=== PATIENT | female | born 2000 | race Caucasian/White ===

== ENCOUNTER 2025-02-14 11:15 | Emergency (ER) | payer OTHER, SELFPAY ==
[2025-02-14 11:18] VITALS: BP 162/102; PULSE 90; RESP 14; TEMP 36.1; O2SAT 98; BMI 35.5
--- NOTE | 2025-02-14 11:31 | DI.RAD.S_ITS ---
PROCEDURE: XR CHEST 1V INDICATIONS: Chest Pain TECHNIQUE: One view of the chest was acquired. COMPARISON: None. FINDINGS: Surgical changes and devices: None. Lungs and pleura: Lungs are clear. No pleural effusions or pneumothorax. Mediastinum: Mediastinal contours appear normal. Heart size is normal. Bones and chest wall: No suspicious bony lesions. Overlying soft tissues appear unremarkable. IMPRESSION: No acute cardiopulmonary abnormality is seen. Approved by: Jesus Wolfe M.D. on 02/14/2025 at 12:24
--- NOTE | 2025-02-14 11:31 | EKG_ITS ---
[address] [address] Test Date: 2025-02-14 Pat Name: Cat Alvarado Department: [facility] Room: Gender: Female [employer]or: JUAN : 2000 Requested By: Order Number: [id number] Reading MD: Boston Gleason MD Measurements Intervals [place] Rate: 63 P: 38 [place]: 168 QRS: 70 QRSD: 92 T: 21 QT: 412 QTc: 421 Interpretive Statements Normal sinus rhythm with sinus arrhythmia Electronically Signed On 02-14-2025 17:15:44 PDT by Boston Gleason MD
[2025-02-14 12:07] LABS: Add Manual Diff / Slide Review NO; Hematocrit 43.1 % (36-46); Hemoglobin 14.7 g/dL (12.0-16.0); Lymphocytes Absolute Auto 2300 /uL (1100-4500); Mean Corpuscular HGB Conc 34.2 % (30-36); Mean Corpuscular Hemoglobin 28.7 PG (26-34); Mean Corpuscular Volume 84.0 fL (80-100); Platelet Count 237 X10^3/uL (150-400)
[2025-02-14 12:13] LABS: INR 1.0 (0.9-1.3); Prothrombin Time 11.4 SECONDS (9.4-12.5)
[2025-02-14 12:16] LABS: PTT Partial Thromboplastin Tim 29 SECONDS (25.1-36.5)
[2025-02-14 12:17] LABS: Alanine Aminotransferase 27 IU/L (<35); Albumin 4.9 g/dL (3.5-5.0); Albumin Globulin Ratio 1.3 (1.0-2.8); Alkaline Phosphatase 100 U/L (38-126); Blood Urea Nitrogen 12 mg/dL (7-17); Calcium 9.4 mg/dL (8.4-10.2); Carbon Dioxide 20 mmol/L (22-32); Chloride 105 mmol/L (98-107); Creatine Kinase 67 U/L (30-135); Estimated Glomerular Filt Rate > 60 mL/min (>60); Globulin 3.9 g/dL (1.7-4.1); Glucose 90 mg/dL (70-99); HEMOLYSIS 19 (0-50); Lipase 44 U/L (23-300); Magnesium 1.9 mg/dL (1.6-2.3); Potassium 4.4 mmol/L (3.4-5.1); Sodium 137 mmol/L (137-145); Total Protein 8.8 g/dL (6.3-8.2)
[2025-02-14 12:29] LABS: NT-proBNP (BNP-Adult 18+) < 20 pg/mL (<125); Troponin I < 0.012 ng/mL (0.01-0.034)
--- NOTE | 2025-02-14 12:39 | ED_ITS ---
HPI - Dizziness General Chief Complaint: Dizziness Stated Complaint: Light headed, Dizzy feeling weak x 1 day Time Seen by Provider: 02/14/25 12:38 Source: patient Mode of arrival: Ambulatory History of Present Illness HPI Narrative: Patient is a healthy 24-year-old female who presents with a weakness. She reports feeling shaky yesterday mild sore throat today no significant headache nausea or vomiting. No abdominal pain no cough or shortness of breath. She reports that she has a decreased appetite yesterday and today. She has had some mild burning with urination but this has been off and on for a number of months. She denies any flank pain Related Data Allergies Allergy/AdvReac Type Severity Reaction Status Date / Time cinnamon Allergy Verified 02/14/25 11:22 Patient History Social History Smoking Status: Unknown if ever smoked Smoking Status: Unknown if ever smoked Exam Initial Vital Signs Initial Vital Signs: Vital Signs Temperature 97.0 F L 02/14/25 11:18 Pulse Rate 90 02/14/25 11:18 Respiratory Rate 14 02/14/25 11:18 Blood Pressure 162/102 H 02/14/25 11:18 Pulse Oximetry 98 02/14/25 11:18 Oxygen Delivery Method Room Air 02/14/25 11:18 GENERAL: Alert 24-year-old female and in no acute distress. HEENT: Head atraumatic,EOMI, pupils reactive, face symmetric, moist mucous membranes CARDIOVASCULAR: Regular rate and rhythm without murmurs, rubs or gallops. RESPIRATORY: Breath sounds equal bilaterally, no wheezes rales or rhonchi. ABDOMEN: Soft, nontender. Normoactive bowel sounds all 4 quadrants. No guarding or rebound. EXTREMITIES: Normal range of motion, no clubbing or edema. Neurovascularly intact NEUROLOGICAL: Alert and oriented x4.Normal gait and speech. Thermostat Repairer strength equal SKIN: Warm, dry, no laceration, no petechiae, no rashes or lesions. Course Orders Ordered: ED Orders 02/14/25 11:31 XR chest 1V Stat EKG-12 Lead Stat 02/14/25 11:56 Complete Blood Count AUTO DIFF Stat Comprehensive Metabolic Panel Stat Lipase Stat Magnesium Stat NT-proBNP (BNP-Adult 18+) Stat PTT Partial Thromboplastin Humberto Stat Prothrombin Time INR Stat Troponin & CK Cardiac Panel Stat 02/14/25 12:29 Urine Culture Stat Urine Microscopic Stat 02/14/25 13:01 Covid-19 + FLU A/B + RSV - PCR Stat Discontinued Medications Sodium Chloride (Normal Saline 0.9%) 1,000 mls @ 1,000 mls/hr IV BOLUS ONE Stop: 02/14/25 13:44 Last Infusion: 02/14/25 14:18 Dose: Infused Documented By: Admin: 02/14/25 13:05 Dose: 1,000 mls/hr Documented By: MILTON Vital Signs Vital signs: Vital Signs - 8 hr 02/14/25 11:18 02/14/25 13:03 02/14/25 13:04 Temperature 97.0 F L Pulse Rate 90 78 75 Respiratory Rate 14 Blood Pressure 162/102 H Pulse Oximetry 98 95 100 Oxygen Delivery Method Room Air 02/14/25 13:04 02/14/25 13:30 02/14/25 13:30 Temperature Pulse Rate 72 Respiratory Rate Blood Pressure 143/86 H 133/74 Pulse Oximetry 100 Oxygen Delivery Method 02/14/25 14:00 02/14/25 14:00 Temperature Pulse Rate 77 Respiratory Rate Blood Pressure 146/80 H Pulse Oximetry 100 Oxygen Delivery Method MDM - Dizziness Lab Data 02/14/25 11:56 02/14/25 11:56 Labs: Lab Results 02/14/25 02/14/25 02/14/25 Range/Units 11:27 11:56 12:29 WBC 9.6 (4.5-11.0) X10^3/uL RBC 5.13 (4.0-5.2) X10^6/uL Hgb 14.7 (12.0-16.0) g/dL Hct 43.1 (36-46) % MCV 84.0 (80-100) fL MCH 28.7 (26-34) PG MCHC 34.2 (30-36) % RDW 12.9 (11.6-14.8) % Plt Count 237 (150-400) X10^3/uL Neut % (Auto) 65.0 (50-75) % Lymph % (Auto) 23.9 L (25-40) % [place] % (Auto) 8.1 (3-14) % Eos % (Auto) 2.2 (2-4) % Baso % (Auto) 0.8 (0-2) % Neut # (Auto) 6200 (3920-1912) /uL Lymph # (Auto) 2300 (1235-8944) /uL [place] # (Auto) 800 (0-900) /uL Eos # (Auto) 200 (0-450) /uL Baso # (Auto) 100 (0-100) /uL PT 11.4 (9.4-12.5) SECONDS INR 1.0 (0.9-1.3) APTT 29 (25.1-36.5) SECONDS Sodium 137 (137-145) mmol/L Potassium 4.4 (3.4-5.1) mmol/L Chloride 105 (98-107) mmol/L Carbon Dioxide 20 L (22-32) mmol/L BUN 12 (7-17) mg/dL Creatinine 0.57 (0.52-1.04) mg/dL Estimated GFR > 60 (>60) mL/min BUN/Creatinine Ratio 21.1 (6-22) Glucose 90 (70-99) mg/dL POC Whole Bld Glucose 78 (70-99) mg/dL Calcium 9.4 (8.4-10.2) mg/dL Magnesium 1.9 (1.6-2.3) mg/dL Total Bilirubin 0.6 (0.2-1.3) mg/dL AST 27 (14-36) IU/L ALT 27 (<35) IU/L Alkaline Phosphatase 100 (38-126) U/L Total Creatine Kinase 67 (30-135) U/L Troponin I < 0.012 (0.01-0.034) ng/mL NT-Pro-B Natriuret Pep < 20 (<125) pg/mL Total Protein 8.8 H (6.3-8.2) g/dL Albumin 4.9 (3.5-5.0) g/dL Globulin 3.9 (1.7-4.1) g/dL Albumin/Globulin Ratio 1.3 (1.0-2.8) Lipase 44 (23-300) U/L Urine RBC None seen (0-5/HPF) Urine WBC 5-10/hpf H (0-5/HPF) Ur Squamous Epith Cells 5-10 /hpf H (0-5/HPF) Amorphous Sediment 1+ Urine Bacteria Moderate (10-30) H (None) Ur Culture Indicated? Specimen cultured Vol Urine Centrifuged 10ml (spun) SARS-CoV-2 (PCR) (Negative) Influenza A (RT-PCR) (NEGATIVE) Influenza B (RT-PCR) (NEGATIVE) RSV (PCR) (Negative) 02/14/25 Range/Units 13:01 WBC (4.5-11.0) X10^3/uL RBC (4.0-5.2) X10^6/uL Hgb (12.0-16.0) g/dL Hct (36-46) % MCV (80-100) fL MCH (26-34) PG MCHC (30-36) % RDW (11.6-14.8) % Plt Count (150-400) X10^3/uL Neut % (Auto) (50-75) % Lymph % (Auto) (25-40) % [place] % (Auto) (3-14) % Eos % (Auto) (2-4) % Baso % (Auto) (0-2) % Neut # (Auto) (4362-4247) /uL Lymph # (Auto) (9950-0333) /uL [place] # (Auto) (0-900) /uL Eos # (Auto) (0-450) /uL Baso # (Auto) (0-100) /uL PT (9.4-12.5) SECONDS INR (0.9-1.3) APTT (25.1-36.5) SECONDS Sodium (137-145) mmol/L Potassium (3.4-5.1) mmol/L Chloride (98-107) mmol/L Carbon Dioxide (22-32) mmol/L BUN (7-17) mg/dL Creatinine (0.52-1.04) mg/dL Estimated GFR (>60) mL/min BUN/Creatinine Ratio (6-22) Glucose (70-99) mg/dL POC Whole Bld Glucose (70-99) mg/dL Calcium (8.4-10.2) mg/dL Magnesium (1.6-2.3) mg/dL Total Bilirubin (0.2-1.3) mg/dL AST (14-36) IU/L ALT (<35) IU/L Alkaline Phosphatase (38-126) U/L Total Creatine Kinase (30-135) U/L Troponin I (0.01-0.034) ng/mL NT-Pro-B Natriuret Pep (<125) pg/mL Total Protein (6.3-8.2) g/dL Albumin (3.5-5.0) g/dL Globulin (1.7-4.1) g/dL Albumin/Globulin Ratio (1.0-2.8) Lipase (23-300) U/L Urine RBC (0-5/HPF) Urine WBC (0-5/HPF) Ur Squamous Epith Cells (0-5/HPF) Amorphous Sediment Urine Bacteria (None) Ur Culture Indicated? Vol Urine Centrifuged SARS-CoV-2 (PCR) Negative (Negative) Influenza A (RT-PCR) Flu a negative (NEGATIVE) Influenza B (RT-PCR) Flu b negative (NEGATIVE) RSV (PCR) Negative (Negative) Point of Care Testing Test Results Negative Urine Dip Bedside Urine Glucose Negative Bedside Urine Bilirubin - Negative Bedside Urine Ketone - Negative Urine Specific [place] 1.030 Bedside Urine Occult Blood - Negative Bedside Urine pH 6.0 Bedside Urine Protein - Negative Bedside Urine Urobilinogen - Negative Bedside Urine Nitrite - Negative Bedside Urine Leukocytes + 70 Esterase Imaging Data Chest x-ray: Radiologist's Impression: PROCEDURE: XR CHEST 1V INDICATIONS: Chest Pain TECHNIQUE: One view of the chest was acquired. COMPARISON: None. FINDINGS: Surgical changes and devices: None. Lungs and pleura: Lungs are clear. No pleural effusions or pneumothorax. Mediastinum: Mediastinal contours appear normal. Heart size is normal. Bones and chest wall: No suspicious bony lesions. Overlying soft tissues appear unremarkable. IMPRESSION: No acute cardiopulmonary abnormality is seen. Approved by: Jesus Wolfe M.D. on 02/14/2025 at 12:24 ECG Data Attestation: I personally reviewed and interpreted this ECG as follows: Interpretation: Normal sinus rhythm rate 63 AL interval 168 QRS [address] changes or T- wave inversions MDM Narrative Medical decision making narrative: Patient is a healthy 24-year-old female presenting today with some weakness. Having some mild sore throat no fever, overall exam is very benign no difficulty breathing and an abdomen is soft. Blood work has been reviewed CBC no anemia or leukocytosis CMP does show mildly low carbon dioxide at 20 but no SANAZ or electrolyte abnormalities Bilirubin liver enzymes within normal limits Troponin negative CPK 67 Viral panel negative Urinalysis does show positive leukocytes, with 5-10 squamous cells EKGs reviewed normal sinus rhythm Chest x-ray reviewed no acute cardiopulmonary process Patient overall appears well vitals are stable she was going than 1 L of IV fluids she also had something to eat. She does have some dysuria but this is mostly postcoital. He has been off and on for number of months. Would hold off treating until culture comes back. At this time patient is feeling better and ready able to go home. Discharge Plan Departure Patient Disposition: Home Clinical Impression: Weakness, URI (upper respiratory infection) Activity Restrictions/Additional Instructions: *You have been diagnosed with weakness upper respiratory infection *What to do: At this time we will hold off antibiotics for a urinary tract infection but may call you in 2-3 days only if you should need them Increase fluids and food as tolerated *Continue to take medications as directed *Follow up with your primary care provider in 2-3 days or call [phone] *Return to ER if you should have increasing weakness passing out shortness of breath or any new, worsening or concerning symptoms Stand Alone Forms: Patient Portal/API
[2025-02-14 13:03] VITALS: PULSE 78; O2SAT 95
[2025-02-14 13:04] VITALS: BP 143/86; PULSE 75; O2SAT 100
[2025-02-14] MEDS: SODIUM CHLORIDE 0.9% 1,000 ML 1000 ML IV (13:05)
[2025-02-14 13:15] LABS: Culture Indicated Urine Specimen Cultured
[2025-02-14 13:30] VITALS: BP 133/74; PULSE 72; O2SAT 100
[2025-02-14 13:46] LABS: COVID-19 CEPHEID 4-PLEX PCR Negative (Negative); Influenza A - CEPHEID Flu A NEGATIVE (NEGATIVE); Influenza B - CEPHEID Flu B NEGATIVE (NEGATIVE)
[2025-02-14 14:00] VITALS: BP 146/80; PULSE 77; O2SAT 100
== END 2025-02-14 14:16 | disposition home or self-care (01) ==
PROVIDERS: Emergency Provider Emergency Medicine
DX: R53.1 Weakness (principal); J06.9 Acute upper respiratory infection, unspecified; R30.0 Dysuria
CPT/HCPCS: 71045; 80053; 81003; 81015; 81025; 82550; 82962; 83690; 83735; 83880; 84484; 85025; 85610; 85730; 87086; 87147; 87637; 93005; 93010; 96360; 99283; 99284